=== PATIENT | male | born 1955 | race Caucasian/White ===

== ENCOUNTER 2025-05-24 06:31 | Day surgery (SDC) | payer MEDICARE ==
[2025-05-24] MEDS ORDERED: fentaNYL 50 MCG/ML SDV ONE (07:07)
[2025-05-24] MEDS ORDERED: Propofol 200 MG/20 ML SDV ONE ×2 (07:07→07:40)
[2025-05-24] MEDS: Lactated Ringers 1,000 ML IV SCH (07:19)
== END 2025-05-24 08:48 | disposition home or self-care (01) ==
LOC: JP.SDS 06:31
PROVIDERS: ATTEND Family Medicine
DX: Z12.11 Encounter for screening for malignant neoplasm of colon (principal); D12.3 Benign neoplasm of transverse colon; K63.5 Polyp of colon; I10 Essential (primary) hypertension; Z88.0 Allergy status to penicillin
CPT/HCPCS: 00811; 45380; J2704; J3010; J7120; 88305

== ENCOUNTER 2025-09-28 14:00 | Emergency (ER) | payer MEDICARE | END 2025-09-28 15:32 | disposition home or self-care (01) | LOC: JP.ED 14:00 | DX: H54.61 Unqualified visual loss, right eye, normal vision left eye (principal); I10 Essential (primary) hypertension; Z88.0 Allergy status to penicillin; Z79.899 Other long term (current) drug therapy | CPT/HCPCS: 70450; 82947; 99284 ==